=== PATIENT | female | born 1970 | race African-American/Black ===

== ENCOUNTER 2020-04-07 02:15 | Inpatient (IN) | payer OTHER ==
[~2020-04-07] VITALS: Ht 172.7 cm; Wt 120.2 kg
[2020-04-07 02:19] VITALS: BP 200/103
[2020-04-07 04:24] LABS: URINE BILIRUBIN NEGATIVE (Negative); URINE BLOOD NEGATIVE (Negative); URINE CLARITY CLEAR; URINE COLOR YELLOW; URINE GLUCOSE-RANDOM* NEGATIVE (Negative); URINE KETONES NEGATIVE (Negative); URINE LEUKOCYTES-REFLEX NEGATIVE (Negative); URINE NITRITE-REFLEX NEGATIVE (Negative); URINE PROTEIN (DIPSTICK) NEGATIVE (Negative); URINE UROBILINOGEN 0.2 E.U./dl (0.2-1.0)
[2020-04-07 04:28] LABS: EOSINOPHILS 0.1 % (0.0-3.0); HEMATOCRIT 36.4 % (37.0-47.0); HEMOGLOBIN 12.4 gm/dL (12.0-15.0); LYMPHOCYTES 17.7 % (24.0-44.0); MCH 29.3 pg (26.0-34.0); MCHC 34.2 g/dL (28.0-37.0); MCV 85.6 fL (80.0-100.0); MONOCYTES 4.6 % (1.0-8.0); PLATELET COUNT 300 thou/uL (150-400); POLYS 76.6 % (36.0-66.0); RBC 4.25 mil/uL (4.20-5.00); RDW 15.7 % (10.5-14.5); WBC 15.6 thou/uL (4.0-11.0)
[2020-04-07 04:52] LABS: CALCIUM 9.3 mg/dL (8.5-10.1); POTASSIUM 3.7 mmol/L (3.5-5.1)
[2020-04-07 04:58] LABS: ALBUMIN 3.7 g/dL (3.4-5.0); TOTAL BILIRUBIN 0.3 mg/dL (0.2-1.0); TOTAL PROTEIN 8.5 g/dL (6.4-8.2)
[2020-04-07 06:13] LABS: APTT 32.4 Seconds (24.5-32.8)
[2020-04-07 07:12] VITALS: BP 176/102
[2020-04-07 07:35] VITALS: BP 176/102
[2020-04-07 08:10] VITALS: BP 182/68
--- NOTE | 2020-04-07 12:45 | NUR ---
PT CARE ASSUMED FROM ER AT 0730. A&Ox4. PT VERY NAUSEATED WITH GENERALIZED ABDOMINAL PAIN. COVID SWABBED IN THE ER, PENDING RESULTS FOR [facility] TOMORROW (04/08). NPO. PAIN CONTROLLED WITH IV MEDICATION ON BOARD. PO ZOFRAN NOT RESOLVING NAUSEA. DR. REDDY NOTIFIED AND SWITCHED TO IV ZOFRAN. CONTINUING TO MONITOR. ADMISSION COMPLEETE. CONSENTS SIGNED. SURGERY CONSENT ON CHART. UP AT [facility]ATTIE IN ROOM. CALL LIGHT IN REACH.
[2020-04-07 16:25] VITALS: BP 173/81
[2020-04-07 22:10] VITALS: BP 147/79
--- NOTE | 2020-04-08 03:40 | NUR ---
PATIENT IS ALERT AND ORIENTED X4. UP TO [facility] INDEPENDENTLY. COOPERATIVE WITH CARE. C/O NAUSEA AND MEDICATED WITH IVP ZOFRAN WITH GOOD RESULTS. NO EMESIS. C/O PAIN TO ABDOMINAL AREA AND MEDICATED WITH MORPHINE IVP PER ORDER. PATIENT STATES THAT LONG SHE LAYS QUIETLY AND AVOIDS ROLLING TO HER LEFT SIDE SHE IS NOT NAUSEATED. IVF INFUSING PER ORDER. VOIDING CLEAR YELLOW URINE. NO BM AT TIME OF NOTE. PATIENT REMAINS NPO FOR AM SURGERY. NEGATIVE COVID RESULTS ON CHART WELL PRINTED CONSENT FOR PROCEDURE. WILL MONITOR.
--- NOTE | 2020-04-08 04:33 | NUR ---
PATIENT CALLED OUT FOR PAIN AND NAUSEA MEDICATION. STATED HER PAIN WAS A "10". THIS NURSE EXPLAINED THAT SHE SHOULD CALL FOR MEDICATION BEFORE HER PAIN WAS OUT OF CONTROL AND TO KEEP IT AROUND "5" OR LOWER. PATIENT SAID THAT SHE DID NOT WANT THE STAFF TO THINK SHE WAS A DRUG ADDICT AND DID NOT WANT TO BE A BOTHER. THIS WAS DISCUSSED AT LENGTH AND PATIENT HAS A BETTER UNDERSTANDING OF REGULATING HER PAIN AND NAUSEA. RESTING QUIETLY.
[2020-04-08 07:28] VITALS: BP 168/76
--- NOTE | 2020-04-08 07:50 | EKG ---
[facility] [place] [address] ELECTROCARDIOGRAM REPORT Name: CHRISTIANA ROMERO Room #: 437-P ADM IN M.R.#: [id number] Admission: 04/07/20 Attend Phys: Jose Luis Hollingsworth, Discharge: Date of : 68 Report #: [id number] THIS REPORT FOR: cc: Aramis Garcia Sr, MD, Otis S Sr MD Lundgren, Craig H. 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
[2020-04-08] MEDS ORDERED: NORCO 10-325 T1 EACH PO (10:34)
--- NOTE | 2020-04-08 12:06 | NUR ---
1130 PATIENT RETURNED FROM SURGURY PER BED. PATIENT IS ALERT AND ORIENTED X4. PATIENT MORAN'S. LUNGS ARE CLEAR. ABD IS SOFT WITH 3 ABD INCISION SITE COVERED WITH STERI-STRIPS. PATIENT DIET ADVANCED TO CLEAR LIQUIDS. BROTH AND JELLO GIVEN. NO N/V NOTED AT THIS TIME. NS AT 50CC STARTED PER S.L. IN PATIENTS LEFT HAND. PATIENT STATES " HER PAIN IS AROUND A 1-2. HOB ELEVATED SO SHE CAN TRY HER CLEAR LIQUIDS. VSS. WILL [facility]INUE TO [facility].
--- NOTE | 2020-04-08 15:05 | NUR ---
ASSESSMENT: CM REVIEWED CHART AND SPOKE WITH PT. PT IS ALERT AND ORIENTED X4. PT REPORTS LIVING IN A DUPLEX WITH HER SON AND GRANDSON. PT REPORTS BEING FULLY INDEPENDENT WITH ADLS AND AMBULATION. PT REPORTS 2 STEPS WITH HANDRAILS TO ENTER AND REPORTS SHE WILL BE ABLE TO STAY ON THE MAIN LEVEL. PT REPORTS NO DME OR THE NEED FOR IT. PT REPORTS HAVING NO INSURANCE AND REPORTS HER P[place] IS DR. ZORAIDA SOLIS [place] [facility] [place]. CM DISCUSSED ROLE. PT REPORTS NO FURTHER NEEDS FROM CM PRIOR TO DISCHARGE.
[2020-04-08 15:20] VITALS: BP 168/76
--- NOTE | 2020-04-08 18:19 | NUR ---
DISCHARGE INSTRUCTIONS GIVEN TO PATIENT. SCRIPTS AND POST-0P INSTRUCTIONS FROM DR. REDDY. PATIENT LEFT UNIT PER W/C TO ED EXIT.
--- NOTE | 2020-04-10 17:06 | PATH ---
[facility] [address] [place] [address] PATHOLOGY RPT PROCEDURE Name: LORENA FALK Room #: 437-P [facility] IN M.R.#: [id number] Admission: 04/07/20 Date of : 68 Discharge: 04/08/20 Report #: [id number] Path Case #: [id number] [facility] Accession Number: [id number] . 01 Material submitted: . gallbladder - GALLBLADDER . 01 Clinical history: . ACUTE CHOLECYSTITIS . 02 Diagnosis: Gallbladder, cholecystectomy: - Ulcerative and hemorrhagic acute cholecystitis. - Multiple inflammatory and hyperplastic polyps without any dysplasia or malignancy. - Mild acute serositis. - Cholelithiasis. - Two reactive lymph nodes. (IUV:pit 04/10/2020) QTP 04/10/2020 1412 Local . 02 Electronically signed: . Shabnam Kang MD, Pathologist NPI- [id number] . 01 Gross description: . The specimen is received in formalin labeled "Lorena Falk gallbladder" and consists of a previously opened pink-smith to hemorrhagic gallbladder measuring 11.3 x 3.5 x 1.5 cm. The margin is inked black. Multiple yellow multifaceted calculi are present measuring 6.0 x 5.0 cm in aggregate. The mucosa is necrotic green-brown and roughened. The wall at the fundus ranges from 0.1-0.2 cm. The neck shows stricture with a thickened white wall/possible mass . This area measures 3.0 x 1.4 cm. There is a lymph node adjacent the gallbladder neck. Senior Estimator sections to include the entire neck stricture are submitted as follows: . A1-A7: Entire neck stricture A8: Fundus and margin A9: Bisected lymph node (SDY; 04/09/2020) SYU/SYU 04/09/2020 1653 Local . 02 Pathologist provided ICD-10: K80.00, K82.4, K65.8 . 02 CPT . [id number] [address] [address] PATHOLOGY RPT PROCEDURE Name: LORENA FALK Room #: 437-P DIS IN M.R.#: [id number] Admission: 04/07/20 Date of : 68 Discharge: 04/08/20 Report #: [id number] Path Case #: [id number] Specimen Comment: A courtesy copy of this report has been sent to [phone] Specimen Comment: [phone] Specimen Comment: Report sent to / DR ESCOTO Performed at: [address] [facility], [place], [place] [id number] MD Fernando Fleming MD Phone: [phone] Performed at: [address] [facility] [id number] MD Shabnam Kang MD Phone: [phone]
== END 2020-04-08 18:18 | disposition home or self-care (01) | DRG 419 ==
LOC: ER 02:15 → EROBS 06:06 → 4S 08:11
PROVIDERS: Emergency Medicine; ADMIT Surgery; ATTEND Surgery
PROC: 0FT44ZZ Resection of Gallbladder, Percutaneous Endoscopic Approach (ICD-10-PCS; principal; 2020-04-07)
DX: K81.9 Cholecystitis, unspecified (principal); Z20.828 Contact with and (suspected) exposure to other viral communicable diseases; Z79.891 Long term (current) use of opiate analgesic; Z79.899 Other long term (current) drug therapy
CPT/HCPCS: 10102; 50010; 50101; 62110; 62900; 70005

== ENCOUNTER 2020-06-03 07:41 | Emergency (ER) | payer OTHER ==
[~2020-06-03] VITALS: Ht 170.2 cm; Wt 117.9 kg
[~2020-06-03 07:41] MED LIST: NORCO 10-325 T1 EACH PO
[2020-06-03 08:18] LABS: URINE BILIRUBIN NEGATIVE (Negative); URINE BLOOD NEGATIVE (Negative); URINE CLARITY CLEAR; URINE COLOR YELLOW; URINE GLUCOSE-RANDOM* NEGATIVE (Negative); URINE KETONES NEGATIVE (Negative); URINE LEUKOCYTES-REFLEX NEGATIVE (Negative); URINE NITRITE-REFLEX NEGATIVE (Negative); URINE PROTEIN (DIPSTICK) NEGATIVE (Negative); URINE UROBILINOGEN 0.2 E.U./dl (0.2-1.0)
[2020-06-03 08:58] LABS: ABSOLUTE NEUTROPHILS 5.6 thou/uL (1.4-8.2); BASOPHILS 0.8 % (0.0-2.0); HEMATOCRIT 38.2 % (37.0-47.0); HEMOGLOBIN 12.5 gm/dL (12.0-15.0); LYMPHOCYTES 36.9 % (24.0-44.0); MCH 28.5 pg (26.0-34.0); MCHC 32.6 g/dL (28.0-37.0); MCV 87.5 fL (80.0-100.0); MONOCYTES 6.4 % (1.0-8.0); PLATELET COUNT 270 thou/uL (150-400); POLYS 54.9 % (36.0-66.0); RBC 4.37 mil/uL (4.20-5.00); RDW 15.6 % (10.5-14.5); WBC 10.3 thou/uL (4.0-11.0)
[2020-06-03 09:02] LABS: CALCIUM 9.1 mg/dL (8.5-10.1); CREATININE 0.8 mg/dL (0.6-1.0); POTASSIUM 3.9 mmol/L (3.5-5.1)
[2020-06-03 09:08] LABS: ALBUMIN 3.2 g/dL (3.4-5.0); TOTAL BILIRUBIN 0.3 mg/dL (0.2-1.0); TOTAL PROTEIN 7.6 g/dL (6.4-8.2)
[2020-06-03 11:55] VITALS: BP 116/50
== END 2020-06-03 11:55 | disposition home or self-care (01) ==
LOC: ER 07:41
PROVIDERS: Emergency Medicine
DX: R10.31 Right lower quadrant pain (principal); Z90.49 Acquired absence of other specified parts of digestive tract

== ENCOUNTER → 2020-09-02 | Outpatient (CLI) | payer OTHER | LOC: BC 11:53 | PROVIDERS: ATTEND Obstetrics & Gynecology | DX: Z12.31 Encounter for screening mammogram for malignant neoplasm of breast (principal) ==